=== PATIENT | female | born 1935 | race Caucasian/White ===

== ENCOUNTER → 2017-01-02 | Outpatient (CLI) | payer OTHER ==
[~2017-01-02] MED LIST: ABILIFY15 MG PO; CARDIZEM CD180 MG PO; COZAAR 50 MG TA50 M1 PO; HYDROCHLOROTHIA25 M2 PO; K-DUR 20 MEQ T20 MEQ PO; L-LYSINE1000 MG PO; LOW DOSE ASPIRI81 M1 PO; NASONEX17 GM NS; NORCO 5-325 TA1 EACH PO; NORVASC10 MG PO; PAXIL CR37.5 MG PO; PAXIL10 MG PO; PREDNISONE; PREDNISONE 5 MG5 M1 PO; SAVAYSA30 MG PO; VITAMIN D-32000 UNIT PO; WELLBUTRIN SR150 MG PO
== END ==
LOC: MRI 13:45
DX: R25.1 Tremor, unspecified (principal)

== ENCOUNTER → 2017-01-08 | Outpatient (CLI) | payer OTHER | LOC: MRI 02:13 | DX: M54.12 Radiculopathy, cervical region (principal); M54.2 Cervicalgia; R25.1 Tremor, unspecified ==

== ENCOUNTER → 2017-08-28 | Outpatient (CLI) | payer OTHER ==
--- NOTE | ~2017-08-28 | 2DMMODE ---
[facility] [address] [place] [address] 2 D/M-MODE ECHOCARDIOGRAM Name: JENNIFER CELIS [id number] Admission: 08/28/17 Attend Phys: Dk Ray, Discharge: Date of : 31 Date of Service: 08/28/17 1645 Report #: [id number] THIS REPORT FOR: //name// APPROVED REPORT Study performed: 08/28/2017 10:15:40 EXAM: Comprehensive 2D, Doppler, and color-flow Echocardiogram Patient Location: Out-Patient Room #: Echo lab Status: routine BSA: 1.66 HR: 70 bpm BP: 118/72 mmHg Other Information Study Quality: Fair Indications Hypertension/HDD Atrial flutter, AAA 2D Dimensions RVDd: 34.12 mm LVEF(%): 58.35 (>50%) IVSd: 9.56 (7-11mm) LVOT Diam: 16.84 (18-24mm) LVDd: 32.21 mm PWd: 10.62 (7-11mm) Ascending Ao: 23.97 (22-36mm) LVDs: 22.60 (25-40mm) Aortic Root: 28.08 mm IVC: 17.00 mm Penny's LVEF: 58.35 % Volumes Left Atrial Volume (Systole) Single Plane 4CH: 45.55 mL Single Plane 2CH: 49.90 mL LA ESV Index: 36.00 mL/m2 Aortic Valve AoV Peak Ollie.: 1.70 m/s AO Peak Gr.: 11.53 mmHg LVOT Max P.28 mmHg LVOT Max V: 0.90 m/s MAGGY Vmax: 1.18 cm2 Mitral Valve MV Decel. Time: 204.00 ms MV E Max Ollie.: 1.10 m/s [facility] [place] [address] 2 D/M-MODE ECHOCARDIOGRAM Name: GIANFRANCO CELISCHIDI Castillo Room #: LAURIE Durbin#: [id number] Admission: 08/28/17 Attend Phys: Dk Ray, Discharge: Date of : 31 Date of Service: 08/28/17 1645 Report #: [id number] Pulmonary Valve PV Peak Ollie.: 0.88 m/s PV Peak Gr.: 3.12 mmHg Tricuspid Valve TR Peak Ollie.: 2.50 m/s TR Peak Gr.: 25.10 mmHg PA Pressure: 30.00 mmHg Left Ventricle The left ventricle is normal size. There is normal left ventricular wall thickness. The left ventricular systolic function is normal. The left ventricular ejection fraction is within the normal range. LVEF is 55-60%. This study is not technically sufficient to allow evaluation of the LV diastolic function. Right Ventricle The right ventricle is normal size. The right ventricular systolic function is normal. Atria Left atrium is dilated. Right atrium is at the upper limits of normal. Aortic Valve The aortic valve is normal in structure. Aortic valve is calcified. Mild aortic regurgitation. There is no aortic valvular stenosis. Mitral Valve The mitral valve is normal in structure. Mild mitral regurgitation. No evidence of mitral valve stenosis. Tricuspid Valve The tricuspid valve is normal in structure. There is trace tricuspid regurgitation. Estimated PAP 30 mmHg. There is no pulmonary hypertension. Pulmonic Valve The pulmonary valve is normal in structure. Trace pulmonic regurgitation. Great Vessels The aortic root is normal in size. IVC is normal in size and collapses >50% with inspiration. [facility] [address] [place] [address] 2 D/M-MODE ECHOCARDIOGRAM Name: JENNIFER CELIS Room #: [facility] Gifty#: [id number] Admission: 08/28/17 Attend Phys: Dk Ray, Discharge: Date of : 31 Date of Service: 08/28/17 1645 Report #: [id number] Pericardium There is no pericardial effusion. <Conclusion> The left ventricle is normal size. LVEF is 55-60%. This study is not technically sufficient to allow evaluation of the LV diastolic function. The right ventricle is normal size. Left atrium is dilated. Right atrium is at the upper limits of normal. The aortic valve is normal in structure. Aortic valve is calcified. Mild aortic regurgitation. Mild mitral regurgitation. There is trace tricuspid regurgitation. Estimated PAP 30 mmHg. There is no pulmonary hypertension. There is no pericardial effusion. <ELECTRONICALLY SIGNED> By: Dk Ray MD, FACC 08/28/171644 44 44 Dk Ray MD, FACC /INF
== END ==
LOC: CV 08:17
DX: I71.4 Abdominal aortic aneurysm, without rupture (principal); I08.0 Rheumatic disorders of both mitral and aortic valves; I10 Essential (primary) hypertension; I48.92 Unspecified atrial flutter; I42.9 Cardiomyopathy, unspecified

== ENCOUNTER 2017-09-14 23:19 | Inpatient (IN) | payer OTHER ==
[~2017-09-14] VITALS: Ht 162.6 cm; Wt 78.5 kg
--- NOTE | ~2017-09-14 | HC ---
[facility] [place] [address] CONSULTATION Name: JENNIFER CELIS Room #: 435-P [facility] IN .R.#: [id number] Admission: 09/15/17 Attend Phys: Chinmay Babb MD Discharge: 09/18/17 Date of : 31 Report #: [id number] THIS REPORT FOR: //name// CC: Christopher Babb DATE OF SERVICE: 09/16/2017 HISTORY OF PRESENT ILLNESS: The patient is an 82-year-old white female who had a fall into the bedside table, apparently lost her balance. She had a right rib cage, her left forearm. She was noted to have right posterior rib fractures and a significant left forearm contusion. She was on Xarelto with history of chronic atrial fibrillation. She is on nasal prong O2, 4 liters and obviously is having a lot of pain with limited movement. We are seeing her in rehabilitation medicine consultation. PAST MEDICAL HISTORY: Includes hypertension, COPD. There is a question of Parkinson's disease. She is noted to have polymyalgia rheumatica and has been on chronic steroids. There is a history of depression. MEDICATIONS: Please see the full medication listing. ALLERGIES: LISINOPRIL AND SULFA. PAST SURGICAL HISTORY: Includes hysterectomy, left breast biopsy, and tonsillectomy. HABITS: Past tobacco abuse, quit greater than a year ago. FAMILY HISTORY: Noncontributory. SOCIAL HISTORY: Lives in an independent living apartment. Did not use any gait aids within her apartment, but used a walker when outside of the apartment. She was not on any oxygen. She has an involved [id number] that is here and grandchildren. She does have help with shopping and laundry. PHYSICAL EXAMINATION: GENERAL: She is an 82-year-old white female in no obvious distress. Somewhat frail in appearance. She is on nasal prong O2, 4 liters. She has thin skin and has a large ecchymosis over the left forearm. Her facies appeared symmetric. She does have some resting tremor of both upper extremities. Range of motion of the left upper extremity is functional with strength probably a grade 3+/5. Right upper extremity, she has some discomfort with gentle range of motion, which she relates back to her rib discomfort. Strength is probably a grade 4- to 3+/5. DTRs are trace to 1. [facility] [address] [place] [address] CONSULTATION Name: JENNIFER CELIS Room #: 435-P [facility] IN M.R.#: [id number] Admission: 09/15/17 Attend Phys: Chinmay Babb MD Discharge: 09/18/17 Date of : 33 Report #: [id number] extremities, no focal calf swelling, functional range of motion with strength grade 3+ to 3/5. NEUROLOGIC: Tone appeared to be intact. Bed mobility was max assist. She is noted to be dependent to down socks per occupational therapy. ASSESSMENT: An 82-year-old white female with the following problem list: 1. Gait instability with fall. 2. Right posterior rib fractures. 3. Left forearm significant ecchymosis. 4. Chronic atrial fibrillation, on Xarelto. 5. Considerable weakness and debilitation. 6. Pain with activity. 7. Questionable history of Parkinson's disease. 8. History of polymyalgia rheumatica, on chronic steroids. 9. Chronic obstructive pulmonary disease. 10. History of depression. PLAN: She is at a low level and at this point, I would recommend a skilled facility transfer as the most appropriate. Doubt she could tolerate an acute in-hospital inpatient rehabilitation level at this time. Case management to further assist in this regard. <ELECTRONICALLY SIGNED> By: Christopher Goss MD 09/20/17 1306 1325 1807 Christopher Goss MD /PMT
[~2017-09-14 23:19] MED LIST changes: +COZAAR 25 MG TA25 MG PO; -COZAAR 50 MG TA50 M1 PO
[2017-09-14 23:20] VITALS: BP 135/85
[2017-09-15 01:05] LABS: ABSOLUTE NEUTROPHILS 6.9 thou/uL (1.4-8.2); BASOPHILS 0.9 % (0.0-2.0); EOSINOPHILS 0.5 % (0.0-3.0); HEMATOCRIT 34.4 % (37.0-47.0); HEMOGLOBIN 11.7 gm/dL (12.0-15.0); LYMPHOCYTES 11.8 % (24.0-44.0); MCH 33.1 pg (26.0-34.0); MCV 97.4 fL (80.0-100.0); MONOCYTES 6.7 % (1.0-8.0); PLATELET COUNT 307 thou/uL (150-400); POLYS 80.1 % (36.0-66.0); RBC 3.53 mil/uL (4.20-5.00); RDW 14.9 % (10.5-14.5); WBC 8.6 thou/uL (4.0-11.0)
[2017-09-15 01:09] LABS: CALCIUM 8.2 mg/dL (8.5-10.1); CREATININE 1.4 mg/dL (0.6-1.0); POTASSIUM 4.5 mmol/L (3.5-5.1)
[2017-09-15 01:09] LABS: URINE BILIRUBIN NEGATIVE (Negative); URINE BLOOD NEGATIVE (Negative); URINE CLARITY CLEAR; URINE COLOR YELLOW; URINE GLUCOSE-RANDOM* NEGATIVE (Negative); URINE KETONES NEGATIVE (Negative); URINE LEUKOCYTES-REFLEX NEGATIVE (Negative); URINE PROTEIN (DIPSTICK) NEGATIVE (Negative); URINE UROBILINOGEN 0.2 E.U./dl (0.2-1.0)
[2017-09-15 01:16] LABS: URINE NITRITE-REFLEX POSITIVE (Negative)
[2017-09-15 01:19] LABS: BACTERIA-REFLEX >30 Many /HPF (None Seen); CASTS None Seen /LPF (None Seen); CRYSTALS None Seen /LPF (None Seen); MUCUS None Seen strn/LPF (None Seen); SQUAMOUS None Seen /LPF (0-3); URINE RBC 0-2 Rare /HPF (0-2); URINE WBC-REFLEX 0-5 Rare /HPF (0-5)
[2017-09-15 01:26] LABS: APTT 30.7 Seconds (24.5-32.8); INR 1.1; PROTIME 11.6 Seconds (9.3-11.4)
[2017-09-15] MEDS ORDERED: SINEMET 25-1001 EAC1 PO (02:13)
[2017-09-15] MEDS ORDERED: ARIMIDEX PO (02:14)
[2017-09-15 16:23] VITALS: BP 131/68
[2017-09-15 20:21] VITALS: BP 106/60
[2017-09-16] VITALS: BP 110/59
[2017-09-16 03:52] VITALS: BP 123/72
[2017-09-16 04:41] LABS: ABSOLUTE NEUTROPHILS 8.7 thou/uL (1.4-8.2); BASOPHILS 0.7 % (0.0-2.0); EOSINOPHILS 0.7 % (0.0-3.0); HEMATOCRIT 31.3 % (37.0-47.0); HEMOGLOBIN 10.4 gm/dL (12.0-15.0); LYMPHOCYTES 9.2 % (24.0-44.0); MCH 33.5 pg (26.0-34.0); MCHC 33.3 g/dL (28.0-37.0); MCV 100.6 fL (80.0-100.0); MONOCYTES 7.5 % (1.0-8.0); PLATELET COUNT 290 thou/uL (150-400); POLYS 81.9 % (36.0-66.0); RBC 3.11 mil/uL (4.20-5.00); RDW 15.4 % (10.5-14.5); WBC 10.6 thou/uL (4.0-11.0)
[2017-09-16 04:56] LABS: CALCIUM 7.4 mg/dL (8.5-10.1); CREATININE 1.8 mg/dL (0.6-1.0)
[2017-09-16 06:12] VITALS: BP 128/62
[2017-09-16 16:20] VITALS: BP 108/64
[2017-09-16 20:18] VITALS: BP 110/65
[2017-09-17 03:45] VITALS: BP 106/69
[2017-09-17 05:40] LABS: ABSOLUTE NEUTROPHILS 8.5 thou/uL (1.4-8.2); BASOPHILS 0.6 % (0.0-2.0); EOSINOPHILS 1.6 % (0.0-3.0); HEMATOCRIT 28.4 % (37.0-47.0); HEMOGLOBIN 9.4 gm/dL (12.0-15.0); LYMPHOCYTES 10.4 % (24.0-44.0); MCH 33.5 pg (26.0-34.0); MCHC 33.3 g/dL (28.0-37.0); MCV 100.8 fL (80.0-100.0); MONOCYTES 7.7 % (1.0-8.0); PLATELET COUNT 232 thou/uL (150-400); POLYS 79.7 % (36.0-66.0); RBC 2.81 mil/uL (4.20-5.00); RDW 15.5 % (10.5-14.5); WBC 10.7 thou/uL (4.0-11.0)
[2017-09-17 05:51] LABS: CALCIUM 6.9 mg/dL (8.5-10.1); CREATININE 1.3 mg/dL (0.6-1.0); POTASSIUM 4.4 mmol/L (3.5-5.1)
[2017-09-17 09:03] VITALS: BP 127/82
[2017-09-17 15:40] VITALS: BP 113/71
[2017-09-17 21:25] VITALS: BP 138/74; BP 148/100
[2017-09-18 04:49] VITALS: BP 134/77
[2017-09-18 08:00] VITALS: BP 139/78
[2017-09-18 08:38] VITALS: BP 139/78
[2017-09-18] MEDS ORDERED: XARELTO15 MG PO (08:39)
[2017-09-18] MEDS ORDERED: OXYCODONE HCL 55 MG PO (08:39)
[2017-09-18] MEDS ORDERED: KEFLEX500 M1 PO (08:39)
[2017-09-18] MEDS ORDERED: ALBUTEROL2.5 MG/31 INH (08:40)
[2017-09-18] MEDS ORDERED: FLOMAX0.4 MG PO (10:53)
== END 2017-09-18 13:32 | DRG 183 ==
LOC: ER 23:19 → 4S 09-15 01:36 → EROBS 09-15 01:36 → 4S 09-15 19:46
PROVIDERS: Emergency Medicine; Family Medicine
DX: S22.41XA Multiple fractures of ribs, right side, initial encounter for closed fracture (principal); E43 Unspecified severe protein-calorie malnutrition; N17.9 Acute kidney failure, unspecified; I10 Essential (primary) hypertension; S50.12XA Contusion of left forearm, initial encounter; E78.00 Pure hypercholesterolemia, unspecified; J44.9 Chronic obstructive pulmonary disease, unspecified; I48.2 Chronic atrial fibrillation; F32.9 Major depressive disorder, single episode, unspecified; G20 Parkinson's disease; C50.912 Malignant neoplasm of unspecified site of left female breast; R33.9 Retention of urine, unspecified; R26.81 Unsteadiness on feet; M35.3 Polymyalgia rheumatica; W18.39XA Other fall on same level, initial encounter; Z90.710 Acquired absence of both cervix and uterus; Y93.89 Activity, other specified; Y92.89 Other specified places as the place of occurrence of the external cause; Y99.8 Other external cause status; Z87.891 Personal history of nicotine dependence; Z98.42 Cataract extraction status, left eye; Z98.41 Cataract extraction status, right eye; Z99.81 Dependence on supplemental oxygen; Z79.52 Long term (current) use of systemic steroids; Z79.899 Other long term (current) drug therapy; Z88.2 Allergy status to sulfonamides; Z88.8 Allergy status to other drugs, medicaments and biological substances
CPT/HCPCS: 10195

== ENCOUNTER 2018-06-03 08:38 | Inpatient (IN) | payer OTHER ==
[~2018-06-03] VITALS: Ht 162.6 cm; Wt 66.7 kg
[2018-06-03] VITALS (8 sets, daily range): BP systolic 119–170; BP diastolic 58–92
--- NOTE | ~2018-06-03 | 2DMMODE ---
[facility] [place] [address] 2 D/M-MODE ECHOCARDIOGRAM Name: JENNIFER CELIS Room #: 205-P [facility] IN ..#: [id number] Admission: 06/03/18 Attend Phys: Brayan Snowden MD Discharge: Date of : 31 Date of Service: 06/03/18 1443 Report #: [id number] THIS REPORT FOR: //name// APPROVED REPORT Study performed: 06/03/2018 14:01:19 EXAM: Comprehensive 2D, Doppler, and color-flow Echocardiogram Patient Location: Bedside Room #: [facility] Status: routine BSA: 1.71 HR: 97 bpm BP: 145/73 mmHg Rhythm: Atrial Fibrillation Other Information Study Quality: Fair/TD apical images. Off axis. Not all measurements taken. Indications Chest pain, short of breath. Hx: Afib, COPD, HTN, HLP 2D Dimensions IVSd: 9.85 (7-11mm) LVOT Diam: 18.37 (18-24mm) LVDd: 35.43 mm PWd: 9.32 (7-11mm) Ascending Ao: 28.07 (22-36mm) LVDs: 23.12 (25-40mm) Aortic Root: 32.56 mm Aortic Valve AoV Peak Ollie.: 1.93 m/s AO Peak Gr.: 16.80 mmHg LVOT Max P.63 mmHg LVOT Max V: 1.29 m/s MAGGY Vmax: 1.76 cm2 Mitral Valve MV Decel. Time: 186.09 ms MV E Max Ollie.: 1.12 m/s Pulmonary Valve PV Peak Ollie.: 0.96 m/s PV Peak Gr.: 3.75 mmHg Tricuspid Valve TR Peak Ollie.: 2.60 m/s RAP Estimate: 5.00 mmHg [facility] [place] [address] 2 D/M-MODE ECHOCARDIOGRAM Name: JENNIFER CELIS Room #: 205-P ADM IN M.R.#: [id number] Admission: 06/03/18 Attend Phys: Brayan Snowden MD Discharge: Date of : 33 Date of Service: 06/03/18 1443 Report #: [id number] TR Peak Gr.: 28.00 mmHg PA Pressure: 33.00 mmHg Left Ventricle The left ventricle is normal size. There is normal LV segmental wall motion. There is normal left ventricular wall thickness. Left ventricular systolic function is normal. LVEF is 55-60%. This study is not technically sufficient to allow evaluation of the LV diastolic function due to atrial fibrillation. Right Ventricle Right ventricle is not well visualized. Atria Left atrium is dilated. Right atrium is dilated. Aortic Valve The Aortic valve is moderately sclerotic. Mild aortic regurgitation. There is no aortic valvular stenosis. Mitral Valve The mitral valve is normal in structure. Mild mitral annular calcification. Mild mitral regurgitation. No evidence of mitral valve stenosis. Tricuspid Valve The tricuspid valve is normal in structure. Mild tricuspid regurgitation. Estimated PAP is 30-35mmHg. Pulmonic Valve The pulmonary valve is normal in structure. Trace pulmonic regurgitation. Great Vessels The aortic root is normal in size. The ascending aorta is normal in size. IVC is normal in size and collapses >50% with inspiration. Pericardium Trivial pericardial fluid noted. <Conclusion> The left ventricle is normal size. LVEF is 55-60%. Left atrium is dilated. Right atrium is dilated. [facility] [address] [place] [address] 2 D/M-MODE ECHOCARDIOGRAM Name: JENNIFER CELIS Room #: 205-P [facility] IN ..#: [id number] Admission: 06/03/18 Attend Phys: Brayan Snowden MD Discharge: Date of : 31 Date of Service: 06/03/18 1443 Report #: [id number] The Aortic valve is moderately sclerotic. Mild aortic regurgitation. The mitral valve is normal in structure. Mild mitral annular calcification. Mild mitral regurgitation. The tricuspid valve is normal in structure. Mild tricuspid regurgitation. Estimated PAP is 30-35mmHg. The pulmonary valve is normal in structure. Trace pulmonic regurgitation. Trivial pericardial fluid noted. <ELECTRONICALLY SIGNED> By: Greyson Michael MD 06/03/18 1443 1443 1443 Greyson Michael MD /INF
--- NOTE | ~2018-06-03 | EKG ---
[address] [address] ELECTROCARDIOGRAM REPORT Name: JENNIFER CELIS Room #: 205-[facility] IN M.R.#: [id number] Admission: 06/03/18 Attend Phys: Brayan Snowden MD Discharge: Date of : 33 Report #: [id number] THIS REPORT FOR: //name// [facility] ED Test Date: 2018-06-03 Test Time: 08:40:06 Pat Name: JENNIFER CELIS Department: Room: [facility] Gender: F Magento Developer: : 1935 Requested By: Paula Noonan Order Number: [id number] MD: Gordon Sorto Measurements Intervals [place] Rate: 85 P: [place]: QRS: 44 QRSD: 126 T: 54 QT: 372 QTc: 443 Interpretive Statements Atrial fibrillation Nonspecific ST segment abnormality No previous ECG available for comparison Electronically Signed On 06-03-2018 16:34:56 CDT by Gordon Sorto [email or web address] <ELECTRONICALLY SIGNED> By: Gordon Sorto MD, FACC 06/03/18 1634 0840 0840 Gordon Sorto MD, FACC /EPI
[~2018-06-03 08:38] MED LIST changes: +ALBUTEROL2.5 MG/31 INH; +ARIMIDEX PO; +FLOMAX0.4 MG PO; +KEFLEX500 M1 PO; +OXYCODONE HCL 55 MG PO; +SINEMET 25-1001 EAC1 PO; +XARELTO15 MG PO
[2018-06-03 09:01] LABS: BASOPHILS 0.5 % (0.0-2.0); EOSINOPHILS 0.4 % (0.0-3.0); HEMATOCRIT 35.9 % (37.0-47.0); HEMOGLOBIN 12.1 gm/dL (12.0-15.0); LYMPHOCYTES 5.9 % (24.0-44.0); MCH 32.9 pg (26.0-34.0); MCHC 33.6 g/dL (28.0-37.0); MCV 97.8 fL (80.0-100.0); MONOCYTES 9.1 % (1.0-8.0); PLATELET COUNT 266 thou/uL (150-400); POLYS 84.1 % (36.0-66.0); RBC 3.67 mil/uL (4.20-5.00); RDW 14.7 % (10.5-14.5); WBC 11.9 thou/uL (4.0-11.0)
[2018-06-03 09:15] LABS: ANION GAP 8 mmol/L (7-16); BUN 25 mg/dL (7-18); CHLORIDE 102 mmol/L (98-107); CO2 29 mmol/L (21-32); CREATININE 1.4 mg/dL (0.6-1.0); GLUCOSE 109 mg/dL (74-106); SODIUM 139 mmol/L (136-145)
[2018-06-03 09:18] LABS: URINE BILIRUBIN NEGATIVE (Negative); URINE BLOOD 2+ (Negative); URINE CLARITY CLEAR; URINE COLOR YELLOW; URINE GLUCOSE-RANDOM* NEGATIVE (Negative); URINE KETONES NEGATIVE (Negative); URINE PROTEIN (DIPSTICK) NEGATIVE (Negative)
[2018-06-03 09:22] LABS: URINE LEUKOCYTES-REFLEX TRACE (Negative); URINE NITRITE-REFLEX POSITIVE (Negative)
[2018-06-03 09:24] LABS: SGOT 20 U/L (15-37); SGPT 7 U/L (30-65); TOTAL BILIRUBIN 0.9 mg/dL (<0.1-1.0); TOTAL PROTEIN 7.4 g/dL (6.4-8.2); TROPONIN-I <0.06 ng/mL (<0.06)
[2018-06-03] MEDS ORDERED: XARELTO15 MG PO (09:28)
[2018-06-03 09:30] LABS: SQUAMOUS 0-3 Few /LPF (0-3)
[2018-06-03] MEDS ORDERED: CARDIZEM CD120 MG PO (09:30)
[2018-06-03 09:31] LABS: BACTERIA-REFLEX >30 Many /HPF (None Seen); CASTS None Seen /LPF (None Seen); CRYSTALS None Seen /LPF (None Seen); URINE RBC 0-2 Rare /HPF (0-2); URINE WBC-REFLEX 6-15 Few /HPF (0-5)
[2018-06-03] MEDS ORDERED: ARIMIDEX1 MG PO (09:31)
[2018-06-03] MEDS ORDERED: COLACE100 MG PO (09:31)
[2018-06-03] MEDS ORDERED: COZAAR 25 MG TA25 M1 PO (09:31)
[2018-06-03] MEDS ORDERED: VITAMIN D3400 UNIT PO (09:31)
[2018-06-03] MEDS ORDERED: PREDNISONE 5 MG5 M1 PO (09:32)
[2018-06-03] MEDS ORDERED: WELLBUTRIN SR150 MG PO (09:34)
[2018-06-03] MEDS ORDERED: ABILIFY10 MG PO (09:34)
[2018-06-03] MEDS ORDERED: PAXIL10 MG PO (09:35)
[2018-06-03] MEDS ORDERED: SINEMET 25-1001 EAC1 PO (09:36)
[2018-06-03] MEDS ORDERED: TYLENOL325 MG PO (09:36)
[2018-06-04 00:25] VITALS: BP 121/79
[2018-06-04 04:03] LABS: CREATININE 1.3 mg/dL (0.6-1.0); POTASSIUM 3.7 mmol/L (3.5-5.1)
[2018-06-04 04:15] VITALS: BP 131/74
[2018-06-04 04:20] LABS: HEMATOCRIT 36.6 % (37.0-47.0); HEMOGLOBIN 11.9 gm/dL (12.0-15.0); MCH 32.1 pg (26.0-34.0); MCHC 32.6 g/dL (28.0-37.0); MCV 98.4 fL (80.0-100.0); RBC 3.72 mil/uL (4.20-5.00); RDW 14.8 % (10.5-14.5); WBC 15.1 thou/uL (4.0-11.0)
[2018-06-04 07:23] VITALS: BP 135/78
[2018-06-04 15:50] VITALS: BP 115/79
[2018-06-04 20:35] VITALS: BP 138/78
[2018-06-05 04:15] VITALS: BP 158/83
[2018-06-05 07:43] VITALS: BP 138/80
[2018-06-05 10:57] LABS: HEMATOCRIT 34.9 % (37.0-47.0); HEMOGLOBIN 11.9 gm/dL (12.0-15.0); MCH 33.5 pg (26.0-34.0); MCHC 34.1 g/dL (28.0-37.0); MCV 98.1 fL (80.0-100.0); RBC 3.56 mil/uL (4.20-5.00); RDW 14.7 % (10.5-14.5); WBC 7.8 thou/uL (4.0-11.0)
[2018-06-05 11:12] LABS: ALBUMIN 2.4 g/dL (3.4-5.0); CALCIUM 8.6 mg/dL (8.5-10.1); CREATININE 1.3 mg/dL (0.6-1.0); MAGNESIUM 1.8 mg/dL (1.8-2.4); POTASSIUM 3.1 mmol/L (3.5-5.1); TOTAL BILIRUBIN 0.2 mg/dL (<0.1-1.0); TOTAL PROTEIN 6.9 g/dL (6.4-8.2)
[2018-06-05 16:20] VITALS: BP 144/70
[2018-06-05 21:25] VITALS: BP 127/52
[2018-06-06 04:45] VITALS: BP 146/82
[2018-06-06 05:34] LABS: HEMOGLOBIN 11.1 gm/dL (12.0-15.0); MCH 32.9 pg (26.0-34.0); MCHC 33.7 g/dL (28.0-37.0); MCV 97.6 fL (80.0-100.0); RBC 3.38 mil/uL (4.20-5.00); RDW 14.9 % (10.5-14.5); WBC 8.3 thou/uL (4.0-11.0)
[2018-06-06 05:57] LABS: CALCIUM 8.6 mg/dL (8.5-10.1); CREATININE 1.1 mg/dL (0.6-1.0); MAGNESIUM 2.1 mg/dL (1.8-2.4)
[2018-06-06 05:59] LABS: POTASSIUM 4.3 mmol/L (3.5-5.1)
[2018-06-06 07:10] VITALS: BP 146/70
[2018-06-06] MEDS ORDERED: LASIX 20 MG TAB20 MG PO (11:53)
[2018-06-06] MEDS ORDERED: PROBIOTIC1 EAC1 PO (11:53)
[2018-06-06] MEDS ORDERED: CEFPODOXIME PR100 MG PO (11:53)
[2018-06-06] MEDS ORDERED: KLOR-CON 1010 MEQ PO (11:54)
[2018-06-06 12:52] VITALS: BP 146/70
== END 2018-06-06 14:00 | DRG 871 ==
LOC: ER 08:38 → EROBS 10:28 → 2N 10:28
PROVIDERS: Hospitalist; Internal Medicine; Student in an Organized Health Care Education/Training Program
DX: A41.9 Sepsis, unspecified organism (principal); I50.33 Acute on chronic diastolic (congestive) heart failure; N17.9 Acute kidney failure, unspecified; N39.0 Urinary tract infection, site not specified; I42.9 Cardiomyopathy, unspecified; I13.0 Hypertensive heart and chronic kidney disease with heart failure and stage 1 through stage 4 chronic kidney disease, or unspecified chronic kidney disease; I48.91 Unspecified atrial fibrillation; E78.00 Pure hypercholesterolemia, unspecified; F32.9 Major depressive disorder, single episode, unspecified; J44.9 Chronic obstructive pulmonary disease, unspecified; E78.5 Hyperlipidemia, unspecified; N18.9 Chronic kidney disease, unspecified; G20 Parkinson's disease; E87.6 Hypokalemia; K59.00 Constipation, unspecified; M81.0 Age-related osteoporosis without current pathological fracture; F02.80 Dementia in other diseases classified elsewhere, unspecified severity, without behavioral disturbance, psychotic disturbance, mood disturbance, and anxiety; M62.84 Sarcopenia; M35.3 Polymyalgia rheumatica; Z85.3 Personal history of malignant neoplasm of breast; Z79.52 Long term (current) use of systemic steroids; Z90.710 Acquired absence of both cervix and uterus; Z98.42 Cataract extraction status, left eye; Z98.41 Cataract extraction status, right eye; Z88.2 Allergy status to sulfonamides; Z88.8 Allergy status to other drugs, medicaments and biological substances; Z87.891 Personal history of nicotine dependence; Z79.899 Other long term (current) drug therapy
CPT/HCPCS: 10194

== ENCOUNTER 2020-07-31 09:18 | Inpatient (IN) | payer OTHER ==
[~2020-07-31] VITALS: Ht 162.6 cm; Wt 53.9 kg
[~2020-07-31 09:18] MED LIST changes: +ABILIFY 5 MG TAB5 MG PO; +ARIMIDEX1 MG PO; +CARDIZEM CD120 MG PO; +CEFPODOXIME PR100 MG PO; +COLACE100 MG PO; +COZAAR 25 MG TA25 M1 PO; +KLOR-CON 1010 MEQ PO; +LASIX 20 MG TAB20 MG PO; +PROBIOTIC1 EAC1 PO; +TYLENOL325 MG PO; +VITAMIN D3400 UNIT PO
[2020-07-31 09:29] VITALS: BP 169/63
[2020-07-31 10:27] LABS: HEMATOCRIT 34.7 % (37.0-47.0); HEMOGLOBIN 11.5 gm/dL (12.0-15.0); MCH 33.3 pg (26.0-34.0); MCHC 33.2 g/dL (28.0-37.0); MCV 100.1 fL (80.0-100.0); RBC 3.47 mil/uL (4.20-5.00); RDW 16.5 % (10.5-14.5); WBC 12.3 thou/uL (4.0-11.0)
[2020-07-31 10:56] LABS: ANION GAP 10 mmol/L (7-16); BUN 26 mg/dL (7-18); CHLORIDE 102 mmol/L (98-107); CO2 27 mmol/L (21-32); CREATININE 1.5 mg/dL (0.6-1.0); GLUCOSE 123 mg/dL (74-106); POTASSIUM 5.1 mmol/L (3.5-5.1); SODIUM 139 mmol/L (136-145); TROPONIN-I <0.06 ng/mL (<0.06)
[2020-07-31 11:13] LABS: CALCIUM 8.7 mg/dL (8.5-10.1)
[2020-07-31 19:47] VITALS: BP 138/72
--- NOTE | 2020-07-31 19:50 | NUR ---
REPORT TRIED NO ANSWER
[2020-07-31 20:12] VITALS: BP 133/82
[2020-07-31 21:10] VITALS: BP 174/58
[2020-08-01] MEDS ORDERED: VITCB500GO PO (04:42)
[2020-08-01] MEDS ORDERED: cholecalciferol PO (04:46)
[2020-08-01] MEDS ORDERED: SENNA PLUS TAB1 EACH PO (04:49)
[2020-08-01] MEDS ORDERED: ZINC SULFATE220 MG PO (04:50)
[2020-08-01 05:32] VITALS: BP 154/84
--- NOTE | 2020-08-01 07:15 | NUR ---
Arrived from ER around 2029. Pt. able to answer orientation questions though forgetful at times. She stated she lives at [facility]. Medication list reconciled from CM list. Maintaining O2 sat up to 100% on 2L/NC. She does report shortness of breath which she stated is worst yesterday but has now gotten better.Pt. has tremors due to Parkinsons.Cont. on enhanced precaution, afebrile. Slow a flutter in the 30's to 40's. Laundry Presser had seen pt. in ER. Denies feeling any symptoms. Incontinent of bladder , external cath in place.
--- NOTE | 2020-08-01 07:34 | EKG ---
[facility] [place] [address] ELECTROCARDIOGRAM REPORT Name: JENNIFER CELIS Room #: 359-P ADM IN M.R.#: [id number] Admission: 07/31/20 Attend Phys: Emmy Shanks MD Discharge: Date of : 31 Report #: [id number] THIS REPORT FOR: cc: Erica Cade MD, Ramilo MD Santiago,Daniel CANDELARIO [facility] ~ THIS REPORT FOR: //name// [facility] ED Test Date: 2020-07-31 Test Time: 09:46:21 Pat Name: JENNIFER CELIS Department: Room: [facility] Gender: F Cardiopulmonary Technician And Eeg Tech: JSHORT1 : 1935 Requested By: Jaylen Giles Order Number: [id number] MD: Daniel Snyder Measurements Intervals [place] Rate: 39 P: [place]: QRS: 7 QRSD: 127 T: 42 QT: 571 QTc: 460 Interpretive Statements A-flutter/fibrillation Nonspecific intraventricular conduction delay Repol abnrm suggests ischemia, diffuse leads Compared to ECG 06/03/2018 08:40:06 Early repolarization now present Possible ischemia now present ST (T wave) deviation no longer present Electronically Signed On 08-01-2020 7:33:58 MAINTENANCE FOREMAN by Daniel Snyder [email or web address] <ELECTRONICALLY SIGNED> By: Daniel Snyder MD, FACC 08/01/20 0733 5 5 Daniel Snyder MD, [facility] /EPI
[2020-08-01 09:08] VITALS: BP 172/109
[2020-08-01 10:11] VITALS: BP 161/75
[2020-08-01 11:29] VITALS: BP 161/60
--- NOTE | 2020-08-01 15:51 | NUR ---
INITIAL ASSESSMENT: Received consult. SW reviewed chart and spoke with nursing and attending physician. Pt was admitted from [facility] due to bardycardia. Pt placed in Enhanced Isolation due to having positive COVID test. Pt is afebrile and on 2L of O2. Pt is on IV abx and IV steroids. ID consulted. PRIMITIVO discussed with [facility] admissions rn, Moisés, who states that pt had tested positive at the facility, but has since been removed from the isolation unit. PRIMITIVO faxed clinical info to the facility for review. PRIMITIVO left voice message for pt's dtr, Chika, to confirm discharge plan. PRIMITIVO is following to assist as needed with discharge planning.
[2020-08-01 16:25] VITALS: BP 169/73
--- NOTE | 2020-08-01 19:12 | NUR ---
PT WAS SEEN TODAY, NO ACUTE CHANGES AT THIS TIME, PT CAN BE CONFUSED, REQUESTED TO STAND UP AND GO TO THE BATHROOM WHEN PT'S BASELINE AT [facility] IS WHEELCHAIR. PT IS NOT PROGRESSING TOWARDS DISCHARGE AT THIS TIME. RN PROVIDED ALL MEDICATIONS PER ORDER. NO ISSUES THIS EVENING. RN SIGNING OFF AT THIS TIME
[2020-08-01 20:15] VITALS: BP 151/113
[2020-08-02] VITALS (7 sets, daily range): BP systolic 141–187; BP diastolic 70–111
--- NOTE | 2020-08-02 07:02 | NUR ---
OCCASIONAL CONFUSION. DOES NOT CALL WHEN ASSISTANCE NEEDED. FREQUENT VISUAL CHECK RENEDERED. BRADYCARDIA ALREADY BEING SEEN BY CARDIOLOGY. NO S/S ACUTE DISTRESS NOTED OR REPORTED AT THIS TIME. CARE TRANSFERRED TO AM RN AT THIS TIME.
[2020-08-02 11:05] LABS: CALCIUM 8.2 mg/dL (8.5-10.1); CREATININE 1.5 mg/dL (0.6-1.0); POTASSIUM 4.5 mmol/L (3.5-5.1)
--- NOTE | 2020-08-02 11:45 | HC ---
[facility] [place] [address] CONSULTATION Name: JENNIFER CELIS Room #: 359-P ADM IN M.R.#: [id number] Admission: 07/31/20 Attend Phys: Emmy Shanks MD Discharge: Date of : 33 Report #: [id number] THIS REPORT FOR: cc: Erica Cade MD, Ramilo MD Barry,Jb Olivia MD ~ DATE OF SERVICE: 08/01/2020 INFECTIOUS DISEASE CONSULTATION ATTENDING PHYSICIAN: Dr. Shanks. REASON FOR EVALUATION: COVID-19 infection. HISTORY OF PRESENT ILLNESS: Chart reviewed, patient examined. This is an 85-year-old, fairly extensive medical history including COPD, who lives in a facility. She presented with increased shortness of breath, apparently onset within the last day or two prior to her evaluation. She was noted to be COVID positive 2 weeks ago. The evaluation did undertake evaluation to exclude pneumonitis. Chest x-ray was otherwise only remarkable for chronic things. CTA chest, no acute process either. COVID antigen was negative with coronavirus-19 PCR being positive. She is seen at 1 liter per nasal cannula. She is mildly encephalopathic. She states she has had changes in her taste, although she does complain about being hungry. She is not aware of any fevers or chills. No other GI related complaints. She is empirically started on azithromycin and ceftriaxone. ALLERGIES: LISTED TO SULFA, LISINOPRIL. CURRENT MEDICATIONS: Include methylprednisolone, azithromycin, ceftriaxone, ipratropium and albuterol inhaler. PAST MEDICAL HISTORY: Hypertension, atrial fibrillation, COPD; polymyalgia rheumatica, on chronic corticosteroids; history of Parkinson's, renal insufficiency, history of depression. SOCIAL HISTORY: Former smoker. No recent ethanol, no illicit drug use. FAMILY HISTORY: Noncontributory. REVIEW OF SYSTEMS: Otherwise, unremarkable. PHYSICAL EXAMINATION: GENERAL: She appears chronically ill, undernourished. She is mildly to [facility] [address] [place] [address] CONSULTATION Name: JENNIFER CELIS Room #: 359-P [facility] IN [facility].#: [id number] Admission: 07/31/20 Attend Phys: Emmy Shanks MD Discharge: Date of : 33 Report #: [id number] moderately encephalopathic. VITAL SIGNS: Temperature 97.4, pulse is low at 33, respirations 16, blood pressure is 161/60. SKIN: Warm, dry. ____. HEENT: Normocephalic. Extraocular muscles intact. Nasal cannula in place. NECK: Supple. LUNGS: Diminished breath sounds. HEART: Bradycardic, irregular. ABDOMEN: Soft, no apparent peritoneal signs. GENITOURINARY AND RECTAL: Deferred. LABORATORY DATA: As described above. Electrolytes: Sodium 139, potassium ____ 5.1, chloride 102, bicarbonate 27, anion gap of 10, BUN and creatinine 26 and 1.5. Estimated GFR of 33. TSH 2.835. CBC: White count 12.3, H and H 11.5 and 34.7, platelets of 393. Chest x-ray without acute process. CT of the chest showed no evidence of pulmonary emboli, coronary artery calcifications, extensive chronic lung changes, multifocal interstitial scarring, pleural based nodule. ASSESSMENT AND PLAN: COVID-19 infection, presenting as a biphasic illness. Given the change in x-ray, cannot entirely exclude early pneumonitis, certainly may well be explained by the ____ somewhat pronounced bradycardia as well. I do think it is reasonable to continue empiric therapy. She does have some renal insufficiency, so current therapy should not be problematic. I do not think she is a candidate for remdesivir at this point. We will continue corticosteroids, certainly at risk for additional complications. We will try to add incentive spirometry. Wean off support, which is minimal at this point, as allowed. Encourage p.o. intake. Monitor expectantly. <ELECTRONICALLY SIGNED> By: Jb Landeros MD 08/02/20 1145 1153 4790 Jb Landeros MD /nt
--- NOTE | 2020-08-02 13:12 | NUR ---
PRIMITIVO reviewed chart and spoke with nursing and attending physician. Pt remains in Enhanced Isolation due to COVID-19. Pt is afebrile and on 2L of O2. Pt is on IV abx and IV steroids. Palliative care physician consulted to discuss plan of care with pt's family. Pt is a DNR. PRIMITIVO received call from pt's dtr, Chika, requesting an update. PRIMITIVO provided update. Pt's dtr requests to speak with attending physician. PRIMITIVO discussed [facility] Communication plan with pt's dtr and sent COVID Communication Letter to Chika via email: [email or web address] for review. Chika to be designated spokesperson. Chika is agreeable with pt returning to [facility]. Per Chika, pt had her first positive COVID test on 07/02. PRIMITIVO contacted Lizzie at [facility] and requested test results to be faxed to place on pt's chart. Attending physician provided with Chika's contact info. PRIMITIVO is following to assist as needed with discharge planning.
--- NOTE | 2020-08-02 13:15 | EKG ---
[facility] [place] [address] ELECTROCARDIOGRAM REPORT Name: JENNIFER CELIS Room #: 359- ADM IN M.R.#: [id number] Admission: 07/31/20 Attend Phys: Emmy Shanks MD Discharge: Date of : 31 Report #: [id number] THIS REPORT FOR: cc: Erica Cade MD, Ramilo MD Santiago,Daniel CANDELARIO [facility] ~ THIS REPORT FOR: //name// [facility] Test Date: 2020-08-02 Test Time: 11:00:27 Pat Name: JENNIFER CELIS Department: Room: [facility] Gender: F Tests Superintendent: CRISTIANA : 1935 Requested By: Emmy Shanks Order Number: [id number] MD: Daniel Snyder Measurements Intervals [place] Rate: 75 P: [place]: QRS: 27 QRSD: 92 T: -27 QT: 469 QTc: 524 Interpretive Statements Atrial fibrillation Anteroseptal infarct, age indeterminate Prolonged QT interval Compared to ECG 07/31/2020 09:46:21 Myocardial infarct finding now present Prolonged QT interval now present Atrial flutter no longer present Intraventricular conduction delay no longer present Early repolarization no longer present Possible ischemia no longer present Electronically Signed On 08-02-2020 13:15:04 MOTOR ANALYST by Daniel Snyder [email or web address] <ELECTRONICALLY SIGNED> By: Daniel Snyder MD, FACC 08/02/20 1315 1100 1100 Daniel Snyder MD, FAC /EPI
--- NOTE | 2020-08-02 18:06 | NUR ---
RECEIVED PT'S CARE AROUND 0735; PT. AFIB; LATE 30-40s; DURING AM ASSESSMENT SLEEP INTERRUPTED FOR AM MEDICATION AND BREAKFAST; PT. AOX4; NO C/O PAIN; EDUCATED ABOUT AM MEDICATIONS; [facility] UNDERSTANDING; EDUCATED ABOUT GOALS THROUGH THE DAY; UNDERSTANDING; DURING AM UP TO CHAIR WITH PT; SBP ON THE 180s; KAI WIRE MACHINE CUTTER ORACLE IAM CONSULTANT, NOTIFIED; ORDERS ON PLACED; WHILE GIVEN NORVAS PT. SITTING ON CHAIR DROPPED TURNED L. SIDE WHILE BODY SHAKING; CALLED NAME; STARE AT REGIONAL OFFICE COORDINATOR AND ANSWER BACK AFTER A FEW SECONDS; HR ON THE MONITOR ON THE 200s; EKG ORDERED; HOSPITALIST AND WIRE MACHINE CUTTER PAGED; DR. VASQUEZ ABLE TO CONTACT DR. MACKEY; PER DR. MACKEY PT. REQUIRE TO BE OUT OF ISOLATION FOR POSSIBLE PACE MAKER; NO IMMEDIATELY ORDERS; DR. VASQUEZ ROUNDING IN THE AFTERNOON; NOTICED ELEVATED HR; DR. MACKEY CALL BY DR. VASQUEZ; NO NEW ORDERS; ANA ROSA NOTIFIED ABOUT POC; UNDERSTANDING; DURING DR. MACKEY ROUNDING SHOWED ELEVATED HR; PER DR. MACKEY MONITOR COUNTING AFLUT PULSES; REGIONAL OFFICE COORDINATOR [facility]; PT. ST. FEELING OK DURING EPISODES OF ELEVATED HR; DR. WONG ROUNDING WHILE DR. MACKEY ROUNDING; PHYSICIAN DISCUSS THE RISK OF PT. BEING CONTAGIOUS; CONSENT FOR PACEMAKER ON PLACED; REQUESTED POSSIBLE TRANSFER FOR CCU; PER DR. VASQUEZ CONSULT DR. ONOFRE; DR. ONOFRE AT BED SIDE DURING THE AFTERNOON; PER DR. ONOFRE PT. ABLE TO MAKE OWN DECISIONS DUE TO PT. UNDERSTAND PACEMAKER BENEFITS; PER ANA ROSA [place] OK FOR PT. TO BE D/C FROM ISOLATION; PT. OUT ISOLATION; CHARGE AND MANAGER LEGAL NOTIFIED; REGIONAL OFFICE COORDINATOR CALL PT'S DAUGHTER AROUND 1730 TO GIVE UPDATES; ALESSANDRO; NOTIFIED PT. AGREED TO HAVE PROCEDURE; DAUGHTER REQUESTED TO HAVE A CONFERENCE FACE CALL WITH PT.; ST. MENTIONED IT BY SOUND CONTROLLER AND DID NOT UNDERSTAND WHAT SHE MENT BY "SET IT UP"; EDUCATED ABOUT USUALLY NURSES AND RELATIVES SET UP A TIME TO HAVE A FACE CALL; ST. WANT TO HAVE WITH MEETING THE THREE BROTHERS AND PT; REGIONAL OFFICE COORDINATOR [facility]; NOTIFIED OF POSSIBLE TRANSFER TO CCU; NOTIFIED ABOUT VISITOR POLICY AND DESIGNATER VISITOR; ST. WANT TO HAVE MEETING, BUT AT THE MOMMENT DRIVING AND MOTHER GOES TO BED AT 1800; CALL CUT WHILE TALKING; REGIONAL OFFICE COORDINATOR RETURNED CALL AND LEFT VOICE MAIL WITH PHONE NUMBER; NO CALL BACK; PT. OUT ISOLATION; NOTICED NO BM SINCE ADMISSION; PHYSICIAN NOTIFIED; ORDERS RECEIVED; ASSESSMENT CHARGED; FOLLOWING POC; WILL PASS ON REPORT;
--- NOTE | 2020-08-02 20:55 | NUR ---
Pt. transferred to rm 201. She has been cleared off isolation by ID. Daughter Chika notified of transfer. Dr. Kenji Cuevas added to spokespersons list with patient's permission.
[2020-08-03] VITALS (13 sets, daily range): BP systolic 109–189; BP diastolic 56–121
--- NOTE | 2020-08-03 07:39 | NUR ---
PATIENTS CARES WERE ASSUMED ABOUT 2200 AND WAS A TRANSFER FROM [facility]. THIS PATIENT HAS BEEN NPO AND PREPED FOR PACEMAKER.
[2020-08-03 11:27] LABS: HEMOGLOBIN 11.7 gm/dL (12.0-15.0); MCH 31.8 pg (26.0-34.0); MCHC 31.6 g/dL (28.0-37.0); MCV 100.7 fL (80.0-100.0); RBC 3.68 mil/uL (4.20-5.00); RDW 17.1 % (10.5-14.5)
[2020-08-03 11:37] LABS: CALCIUM 8.6 mg/dL (8.5-10.1); CREATININE 1.1 mg/dL (0.6-1.0); POTASSIUM 4.3 mmol/L (3.5-5.1)
--- NOTE | 2020-08-03 17:13 | NUR ---
FAXED CLINICAL UPDATE TO [facility] RECEIVED CONFIRMATION AND LEFT MSG WITH ANAND.
--- NOTE | 2020-08-03 18:06 | NUR ---
ASSUMED CARE AT SHIFT CHANGE, ASSESSMENT DOCUMENTED, DENIES ANY DISCOMFORT. BP ELEVATED MEDICATED PER ORDERS, AND OTHER VSS. S/P PACEMAKER PLACEMENT TODAY, POSTOP VS INPROGRESS, AND WILL CONTINUE WITH POC.
--- NOTE | 2020-08-03 23:01 | CATHLAB ---
[facility] [address] [place] [address] INVASIVE PROCEDURE REPORT Name: JENNIFER CELIS Room #: 201-P ADM IN M.R.#: [id number] Admission: 07/31/20 Attend Phys: Emym Shanks MD Discharge: Date of : 31 Report #: [id number] THIS REPORT FOR: cc: Erica Cade MD, Ramilo MD Lammoglia, Francisco J. MD ~ APPROVED REPORT Study performed: 08/03/2020 13:43:50 Patient Status: In-Patient Room #: Event Personnel: Greyson Mihcael Peanut Butter Maker, Ahmet Hodges RN, Conor Knox RTR Monitor, Marii Kelley Scrub, Anamika Lawson RTR, ARTHUR Scrub Exam: Insertion of Single Chamber Permanent Pacemaker Indications: Sick Sinus Syndrome/Tachy Luke Syndrome The patient is a 85 year-old female with a history of sick sinus syndrome with tachy-luke syndrome. Conscious Sedation Start time: 1442 End Time: 1524 Versed 3 mg Implanted Devices: Generator; Medtronic [place] S SR MRI SureScan model# W3SR01, SN: [id number], EXP date: 2021-07-30 RA Lead; Model #5076-52cm,SN:[id number], EXP date:2022-05-17 [facility]-[address] [place] [address],WAVE-11, TH .75@.04 Procedure The patient underwent informed consent. We discussed the details of the procedure including the risks, which include, but not limited to bleeding, infection, vascular damage, cardiac perforation, and pneumothorax. She understood these risks and was willing to proceed. As such, she was brought to the EP/Cardiac Catheterization laboratory in a fasting and sedated state and prepped and draped in a sterile fashion, received IV antibiotics prior to initiation of the procedure and a venogram was performed showing patency of the left axillary vein. The patient underwent conscious sedation, with no related complications. The patient was brought to the EP/Cardiac Catheterization laboratory [address] [address] INVASIVE PROCEDURE REPORT Name: JENNIFER CELIS Room #: 201-P [facility] IN ..#: [id number] Admission: 07/31/20 Attend Phys: Kianna Shields Discharge: Date of : 31 Report #: [id number] and the left chest and shoulder were prepped and draped in a sterile manner. During this case, Fluoroscopy and no contrast were used for imaging. The left subclavian region was infiltrated with 2% Lidocaine subcutaneous anesthesia. A transverse incision was made in the left upper chest cavity. The subcutaneous pocket was formed via blunt dissection. Percutaneous venous access was achieved and an introducer sheath was inserted into the right Subclavian vein. Sheaths were positions using the modified Seldinger technique Utilizing fluoroscopic guidance, the atrial and ventricular lead wires were advanced over the wires and positioned in the right atria and right ventricle respectively. Capturing and sensing thresholds were verified. Single Chamber The atrial and ventricular leads were then secured using 2-0 nonabsorbable suture sutures. The subcutaneous pocket was irrigated with ancef antibiotic solution.The ventricular lead was attached to the appropriate receptacle on the pulse generator and set screws firmly tightened to insure adequate contact and stability. The lead and pulse generator were placed into the subcutaneous pocket. Sharp and sponge counts were confirmed to be correct. At this time the pocket was closed subcutaneously with a 2-0 nonabsorbable suture in a running/locking sticth and the skin was closed with a 4-0 absorbable suture in a subcuticular stich. The operative site was dressed in sterile fashion with steri strips and the patient was transferred to the floor in stable condition. Complications The patient tolerated the procedure well and there were no complications associated with the procedure. Findings Specimens Removed: N/A Estimated Blood Loss: 5 cc Conclusion 1. Successful insertion of a Single Chamber Medtronic Pacemaker [facility] [address] [place] [address] INVASIVE PROCEDURE REPORT Name: JENNIFER CELIS Room #: 201-P [facility] IN ..#: [id number] Admission: 07/31/20 Attend Phys: Kianna Shields Discharge: Date of : 31 Report #: [id number] Recommendations 1. routine post insertion protocoll <ELECTRONICALLY SIGNED> By: Greyson Michael MD 08/03/202299 99 99 Greyson Michael MD /INF
[2020-08-04] VITALS (7 sets, daily range): BP systolic 136–172; BP diastolic 77–97
--- NOTE | 2020-08-04 05:49 | NUR ---
PATIENT SLEPT THROUGH HALF OF THE NIGHT. A&OX3, CONFUSED AT TIMES. NEW PACEMAKER. IMMOBOLIZER IN PLACE. PUREWICK IN PLACE. MEDS GIVEN PER ORDERS. NO COMPLAINTS OF PAIN. FOLLOWING POC AND ASSESING NEEDED.
--- NOTE | 2020-08-04 06:02 | NUR ---
Ashley SPOKE WITH DAUGHTER LUCIA FOR 10 MIN GIVING UPDATE ON PATIENT STATUS. QUESTIONS ANSWERED. CONTINUE TO ASSES.
--- NOTE | 2020-08-04 12:01 | NUR ---
Case discussed with the care team this morning. Possible dc back to the shelter today if cleared by cardiology. Pt had pacemaker placed yesterday. Arm immobilized. Toni Moscoso liason notified and they can accept for readmission to her care home care bed today if ready. Chart copy in progress. Will follow to finalize dc arrangements if indicated.
--- NOTE | 2020-08-04 18:12 | NUR ---
ASSUMED CARE AT SHIFT CHANGE, ALERT AND ORIENTED X3-4 AND FORGETFUL, ST WITH ACTIVITIES AND VPACED AT TIMES. PROGRESSING TOWARDS GOAL AND WILL CONTINUE WITH POC.
[2020-08-05 04:20] VITALS: BP 159/82
[2020-08-05 07:25] VITALS: BP 116/63
--- NOTE | 2020-08-05 08:50 | NUR ---
ASSUMED CARE OF THE PATIENT AT 1900; AOX4; SLEPT QUIETLY THROUGHOUT THE NOC WITH NO C/O OF PAIN; UPPER CHEST SITE WITH DRESSING IN PLACE C/D/I; PLAN IS FOR PATIENT TO D/C TO IGNITE TODAY; WILL CONTINUE TO MONITOR.
[2020-08-05 11:25] VITALS: BP 150/94
--- NOTE | 2020-08-05 13:44 | NUR ---
PT DISCHARGING TODAY TO [facility] FAXED DC ORDERS/SUMMARY TO FACILITY SPOKE WITH KEREN IN ADM SHE RECEIVED ORDERS AND ARRANGED TRANSPORT BY [facility] FOR 1500 TODAY. NOTIFIED PT'S DTR (LUCIA) OF DC AND TIME OF TRANSPORT. UNIT NOTIFIED AND CHART COPY PER US. RN TO CALL REPORT TO [phone].
--- NOTE | 2020-08-05 15:27 | NUR ---
ASSUMED CARE OF PT AT SHIFT CHANGE. ASSESSMENTS CHARTED. MEDS GIVEN PER OCT. PT A&OX4, NO C/O PAIN, VSS. DISCHARGE ORDERS COMPLETE, IV AND TELE DC'D. TRANSPORTATION VIA WHEELCHAIR [facility] TO FACILITY.
== END 2020-08-05 15:00 | DRG 242 ==
LOC: ER 09:18 → 2N 11:57 → EROBS 11:57 → 3W 11:57 → 2N 08-02 21:26
PROVIDERS: Emergency Medicine; Nurse Practitioner; ADMIT Hospitalist; ATTEND Hospitalist
DX: I49.5 Sick sinus syndrome (principal); J96.01 Acute respiratory failure with hypoxia; J12.9 Viral pneumonia, unspecified; U07.1 COVID-19; E43 Unspecified severe protein-calorie malnutrition; I48.21 Permanent atrial fibrillation; Z68.1 Body mass index [BMI] 19.9 or less, adult; I48.92 Unspecified atrial flutter; E78.00 Pure hypercholesterolemia, unspecified; F32.9 Major depressive disorder, single episode, unspecified; J44.9 Chronic obstructive pulmonary disease, unspecified; N18.30 Chronic kidney disease, stage 3 unspecified; F41.9 Anxiety disorder, unspecified; Z66 Do not resuscitate; E78.5 Hyperlipidemia, unspecified; G20 Parkinson's disease; Z85.3 Personal history of malignant neoplasm of breast; I12.9 Hypertensive chronic kidney disease with stage 1 through stage 4 chronic kidney disease, or unspecified chronic kidney disease; Z79.899 Other long term (current) drug therapy; Z87.891 Personal history of nicotine dependence; Z88.2 Allergy status to sulfonamides; Z88.8 Allergy status to other drugs, medicaments and biological substances; Z90.710 Acquired absence of both cervix and uterus; Z98.42 Cataract extraction status, left eye; Z98.41 Cataract extraction status, right eye
CPT/HCPCS: 10081; 10879

== ENCOUNTER → 2020-08-12 | Outpatient (CLI) | payer OTHER ==
[~2020-08-12] MED LIST changes: +SENNA PLUS TAB1 EACH PO; +VITCB500GO PO; +ZINC SULFATE220 MG PO; +cholecalciferol PO
== END ==
LOC: SJCVC 13:30
PROVIDERS: ATTEND Internal Medicine
DX: I48.21 Permanent atrial fibrillation (principal); E78.5 Hyperlipidemia, unspecified; I10 Essential (primary) hypertension; I49.5 Sick sinus syndrome; J44.9 Chronic obstructive pulmonary disease, unspecified; E78.00 Pure hypercholesterolemia, unspecified; Z82.49 Family history of ischemic heart disease and other diseases of the circulatory system; Z87.891 Personal history of nicotine dependence; Z79.899 Other long term (current) drug therapy; Z88.1 Allergy status to other antibiotic agents; Z88.2 Allergy status to sulfonamides